=== PATIENT | female | born 1980 | race Two or more races ===

== ENCOUNTER 2017-02-15 05:46 | Day surgery (SDC) | payer MEDICAID ==
[2017-02-14 17:30] VITALS: Ht 152.4 cm; Wt 63.8 kg
[2017-02-15] VITALS (15 sets, daily range): BP systolic 103–123; BP diastolic 51–67; PULSE 52–68; RESP 10–18
[~2017-02-15] VITALS: Ht 152.4 cm; Wt 63.8 kg
[2017-02-15] MEDS ORDERED: SUCCINYLCHOLINE CHLORIDE 100 MG/5 ML SYG IV ONE (06:58)
[2017-02-15] MEDS ORDERED: FENTAnyl 50 MCG/ML VIAL ONE (06:58)
[2017-02-15] MEDS ORDERED: ROCURONIUM 50 MG INJ ONE (06:58)
[2017-02-15] MEDS ORDERED: PROPOFOL 20 ML ONE (06:58)
[2017-02-15] MEDS ORDERED: ONDANSETRON 4 MG INJ ONE (06:58)
[2017-02-15] MEDS ORDERED: METOCLOPRAMIDE 10 MG INJ ONE (06:59)
[2017-02-15] MEDS ORDERED: CEFAZOLIN 1 GM INJ ONE (06:59)
[2017-02-15] MEDS ORDERED: BUPIVACAINE 0.25%/EPI (SDV) 30 ML INJ ONE (07:24)
[2017-02-15] MEDS ORDERED: LACTATED RINGER'S 1,000 ML IV* SCH (07:30)
[2017-02-15] MEDS ORDERED: CEFAZOLIN 2 GM/50 ML (PMX) 50 ML IVPB SCH (07:30)
[2017-02-15] MEDS ORDERED: KETOROLAC 30 MG INJ ONE (07:50)
[2017-02-15] MEDS ORDERED: HYDROmorphONE (0.2 MG/ML) 10ML SYG IV PRN ×3 (08:30)
[2017-02-15] MEDS ORDERED: MEPERIDINE 25 MG INJ IV PRN (08:30)
[2017-02-15] MEDS ORDERED: FENTAnyl 50 MCG/ML VIAL IV PRN ×2 (08:30)
[2017-02-15] MEDS ORDERED: ONDANSETRON 4 MG INJ IV PRN (08:30)
--- NOTE | 2017-02-15 09:37 | OPR ---
DATE OF OPERATION: PREOPERATIVE DIAGNOSIS: The patient desires permanent sterilization. POSTOPERATIVE DIAGNOSIS: The patient desires permanent sterilization. OPERATION PERFORMED: Laparoscopic tubal fulguration and transection. SURGEON: Anabelle Serrano MD ESTIMATED BLOOD LOSS: Minimal. COMPLICATIONS: None. FINDINGS: Normal tubes and normal ovaries bilaterally. The uterus looked slightly enlarged, no pel shahid adhesions. No evidence of endometriosis or scar tissue. No evidence of myoma. CONSENT: Please see preop H and P consent done in my office. DESCRIPTION OF PROCEDURE: She was taken to the operating room and general anesthesia was induced. She was prepped and draped in the usual sterile fashion in dorsal lithotomy position. Surgical time out was done. The patient identified. Anterior lip of the cervix was grasped using a single-toothed tenaculum, an d the cervix was gradually dilated to allow the HUMI to be inserted. This was challenging due to __ __ cervical os. After the HUMI was removed, tenaculum was removed, and gloves were changed, 10 mL o f 0.25% Marcaine with epinephrine was injected at the umbilical site as well as the suprapubic site. A small periumbilical incision was developed and a blunt trocar was inserted in a normal fashion w ithout any difficulty. Intraperitoneal position was confirmed using the laparoscope. A second troc ar was inserted above the pubic symphysis in normal fashion under direct visualization of the laparo scope. A 5 cm ampullary region of the right tube was coagulated, complete desiccation of the entire diameter of the tube was well visualized. After the tube was well coagulated, the middle of the tu be was cut, there was no bleeding. Same procedure was done contralateral side. Pneumoperitoneum re leased. All instruments removed under direct visualization. There was no bleeding. ____ closed us ing 4-0 Monocryl. The HUMI was removed. There was small bleeding from the cervix which was stopped with a gaexps-av-prhdl suture of 2-0 Vicryl. The patient tolerated the procedure well. Dictated By: ANABELLE JIMENEZ/DIVYA Conf#: [id number] DID#: [id number]
== END 2017-02-15 10:33 | disposition home or self-care (01) ==
LOC: SDS 05:46
PROVIDERS: ATTEND Specialist
DX: Z30.2 Encounter for sterilization (principal)
CPT/HCPCS: 58670; J0330; J0690; J1170; J1885; J2175; J2405; J2765; J3010; Z7512; Z7610